=== PATIENT | female | born 1960 | race Caucasian/White ===

== ENCOUNTER 2016-08-18 22:54 | Emergency (ER) | payer MEDICAID ==
--- NOTE | 2016-08-18 23:28 | ED Physician Chart ---
Chief Complaint/HPI - Patient Information Date Seen:: 08/18/16 Time Seen:: 23:10 Chief Complaint:: shortness of breath History of Present Illness:: Patient said shortness of breath and wheezing intermittently since July 29. She has been using an inhaler with no to slight benefit only. She has a nonproductive cough in the supine position. No fever. Allergies:: Allergies Allergy/AdvReac Type Severity Reaction Status Date / Time No Known Allergies Allergy Verified 08/18/16 23:22 Vitals:: Vital Signs - 8 hr 08/18/16 23:05 Temp 97.2 F HR 72 RR 20 BP 138/83 O2 Sat % 97 Historian:: Patient Review:: Nurse's Note Reviewed Review of Systems - Review of Systems General/Constitutional: No fever, No chills Skin: No skin lesions Head: No headache Eyes: No loss of vision ENT: No earache Neck: No neck pain Cardio Vascular: Chest pain Pulmonary: SOB, Cough, Wheezing GI: No nausea, No vomiting G/U: No dysuria, No frequency, No hematuria Musculoskeletal: No bone or joint pain, No back pain, No muscle pain Endocrine: No polyuria, No polydipsia Psychiatric: No prior psych history, No depression Hematopoietic: No bruising Allergic/Immuno: No urticaria Neurological: No syncope, No focal symptoms Past Medical History - Past Medical History Past Medical History: Asthma/COPD, Other (hepatitis C) Family History: HTN, Cancer Social History: Other (patient quit smoking 6 months ago) Surgical History: Cholecystectomy, , other (oophorectomy) Psychiatricy History: None Medication: Reviewed Physical Exam - Physical Examination General/Constitutional: Well-developed, well-nourished, Alert, No distress Head: Atraumatic Eyes: Lids, conjuctiva normal, PERRL Skin: Nl inspection ENMT: External ears, nose nl, TM canals nl, Nasal exam nl, Oropharynx nl, Tonsils nl Other ENMT comments:: Upper teeth absent Neck: No nuchal rigidity Respiratory: Nl effort/Exclusion Other Respiratory comments:: 1/4 wheezing otherwise chest is clear Cardio Vascular: RRR, No murmur, gallop, rubs GI: No tenderness/rebounding/guarding, No organomegaly, No hernia, Normal BS's, Nondistended : No CVA tenderness Other Extremities comments:: 2 out of 4 pretibial pitting edema Neuro/Psych: Alert/oriented, No focal deficits Misc: Normal back, No paraspinal tenderness Labs/Radiology/EKG Results - Radiology Results Comments:: Chest x-ray normal Assessment - Assessment General Assessment: Patient felt better after the breathing treatment ED Septic Shock - . Is Septic Shock (SBP<90, OR Lactate>4 mmol\L) present?: No - <6hrs of presentation: Vital Signs: Vital Signs - 8 hr 08/18/16 23:05 Temp 97.2 F HR 72 RR 20 BP 138/83 O2 Sat % 97 Reassessment (Disposition) - Reassessment Reassessment Condition:: Improved - Diagnosis Diagnosis:: Exacerbation COPD - Aftercare/Follow up Instructions Aftercare/Follow-Up Instructions:: Refer to Discharge Instructions Medication Prescribed:: Ventolin metered-dose inhaler 2 puffs every 4 hours when necessary; prednisone 60 mg a day 5 days - Patient Disposition Discharge/Transfer:: Home Condition at Disposition:: Stable, Improved
[2016-08-19] MEDS ORDERED: Albuterol/Ipratropium Neb 3 ML AERS HHN ONE (00:08)
[2016-08-19] MEDS: Albuterol/Ipratropium Neb 3 ML AERS HHN ONE (00:11)
--- NOTE | 2016-08-19 09:40 | Diagnostic Imaging Report ---
CHEST X-RAY: AP view INDICATION: Shortness of breath COMPARISON: None FINDINGS: No focal consolidation, pleural effusions, or evidence of CHF. Heart size at the upper limits of normal. Degenerative changes of the spine are noted. IMPRESSION: No focal airspace consolidation identified.
== END 2016-08-19 00:50 | disposition home or self-care (01) ==
LOC: ER 22:54
DX: J44.1 Chronic obstructive pulmonary disease with (acute) exacerbation (principal); J45.909 Unspecified asthma, uncomplicated; Z87.891 Personal history of nicotine dependence
CPT/HCPCS: 71010-TC; 94640; Z7502